=== PATIENT | male | born 1980 | race Caucasian/White ===

== ENCOUNTER → 2017-01-21 | Outpatient (CLI) | payer BC ==
--- NOTE | 2017-01-21 12:18 | PN ---
DATE OF SERVICE: 01/21/2017 A 37-year-old gentleman who had [facility] to rule out obstructive sleep apnea-hypopnea syndrome. Patient had episode of atrial fibrillation about one year ago of snoring and previously complained of sleepiness. We did three home sleep apnea tests, which did not show any significant respiratory abnormalities. Highest apnea-hypopnea index was 3.5 and another night was 0.2 and third night it was 1.7. No significant oxygen desaturation at all. No significant snoring has been documented. Recently patient does not have symptoms of significant excessive daytime sleepiness. [place] Sleepiness Scale is 5. He did not have any episodes of atrial fibrillation since one year ago. MEDICATIONS: Lansoprazole. During physical exam, patient in no distress. BP 144/83, HR 75, RR 16. Temperature 98.2, weight 222.6. Oxygen saturation at room air 95%. Oropharynx practically normal position of soft palate, NECK: Supple. No JVD, Thyroid is not palpable. LUNGS: Clear to percussion and to auscultation. Good air exchange. No wheezing or rhonchi. HEART: S1, S2 regular. No murmurs, gallops, or rubs. ABDOMEN: Soft and nontender. Bowel sounds are present. No organomegaly appreciated. CREDIT COLLECTION ASSOCIATE: Awake, alert, and oriented x3. Cranial nerves 2 to 7 intact. There is no fasciculation or atrophy noted. No focal deficits observed. IMPRESSION: 1. No significant respiratory abnormalities have been documented during the sleep study. Some snoring was documented. 2. Presently no significant symptoms of sleepiness. [place] Sleepiness Scale is 5. 3. Episode of atrial fibrillation about one year ago resolved spontaneously. No episodes of atrial fibrillation since that time. 4. Seasonal allergies. 5. Acid reflux. 6. Possible nasal septum deviation. 7. History of esophageal ulcer with narrowing of esophagus. 8. Status post esophageal distention. Procedure in 2009. No recent problem related to esophagus. PLAN: 1. Watching and losing weight. 2. Sleep hygiene with regular time in bed for at least 8 hours. 3. No driving if feeling any sleepiness. 4. Followup visit in one year. Thank you very much for allowing me to participate in the management of your patient. Sincerely, Orlin Miller MD, PhD, FAASM Diplomat of [place] [employer], Sleep Medicine Board by [employer] [place] [employer] Certified Medicine Aide of [facility] [place]
== END | disposition home or self-care (01) ==
LOC: SLEEP 10:30
PROVIDERS: ATTEND Internal Medicine
DX: G47.33 Obstructive sleep apnea (adult) (pediatric) (principal); Z91.09 Other allergy status, other than to drugs and biological substances; K21.9 Gastro-esophageal reflux disease without esophagitis; Z79.899 Other long term (current) drug therapy; Z87.898 Personal history of other specified conditions; Z98.890 Other specified postprocedural states